=== PATIENT | female | born 1945 | race Caucasian/White ===

== ENCOUNTER → 2018-04-15 11:44 | Outpatient (CLI) | payer MEDICARE, BC, SELFPAY ==
--- NOTE | 2018-04-15 | DI.MG.S_ITS ---
BILATERAL DIGITAL SCREENING MAMMOGRAM 3D/2D WITH CAD: 04/15/2018 CLINICAL: Routine screening. Comparison is made to exams dated: 03/15/2017 mammogram - [facility], 05/01/2015 mammogram, and 04/30/2014 mammogram - [facility]. The tissue of both breasts is predominantly fatty. Current study was also evaluated with a Computer Aided Detection (CAD) system. No significant masses, calcifications, or other findings are seen in either breast. There has been no significant interval change. IMPRESSION: NEGATIVE There is no mammographic evidence of malignancy. A 1 year screening mammogram is recommended. This exam was interpreted at Station ID: [id number]. NOTE: For mammograms, a report in lay terms will be sent to the patient. Approximately 15% of breast malignancies will not be visualized mammographically. In the management of a palpable breast mass, a negative mammogram must not discourage biopsy of a clinically suspicious lesion. Electronically Signed By: Anthony henao/gabriel:04/15/2018 16:46:37 letter sent: Normal Exam ACR BI-RADS Category 1: Negative 3341F
== END ==
PROVIDERS: Family Provider Internal Medicine; PCP Internal Medicine; Visit Provider Internal Medicine
DX: Z12.31 Encounter for screening mammogram for malignant neoplasm of breast (principal)
CPT/HCPCS: 77063; 77067

== ENCOUNTER → 2019-04-18 09:56 | Outpatient (CLI) | payer MEDICARE, BC, SELFPAY | PROVIDERS: PCP Internal Medicine; Visit Provider Internal Medicine | DX: M81.0 Age-related osteoporosis without current pathological fracture (principal); Z78.0 Asymptomatic menopausal state; E11.9 Type 2 diabetes mellitus without complications | CPT/HCPCS: 77080 ==

== ENCOUNTER → 2019-04-20 15:40 | Outpatient (CLI) | payer MEDICARE, BC, SELFPAY ==
--- NOTE | 2019-04-20 | DI.MG.S_ITS ---
BILATERAL DIGITAL SCREENING MAMMOGRAM 3D/2D WITH CAD: 04/20/2019 CLINICAL: Routine screening. Comparison is made to exams dated: 04/15/2018 mammogram, 03/15/2017 mammogram - [facility], and 05/01/2015 mammogram - [facility]. There are scattered fibroglandular elements in both breasts. Current study was also evaluated with a Computer Aided Detection (CAD) system. No significant masses, calcifications, or other findings are seen in either breast. There has been no significant interval change. IMPRESSION: NEGATIVE There is no mammographic evidence of malignancy. A 1 year screening mammogram is recommended. This exam was interpreted at Station ID: [id number]. NOTE: For mammograms, a report in lay terms will be sent to the patient. Approximately 15% of breast malignancies will not be visualized mammographically. In the management of a palpable breast mass, a negative mammogram must not discourage biopsy of a clinically suspicious lesion. Electronically Signed By: Diony kaye/gabriel:04/20/2019 18:51:55 letter sent: Normal Exam ACR BI-RADS Category 1: Negative 3341F
== END ==
PROVIDERS: PCP Internal Medicine; Visit Provider Internal Medicine
DX: Z12.31 Encounter for screening mammogram for malignant neoplasm of breast (principal)
CPT/HCPCS: 77063; 77067

== ENCOUNTER → 2020-04-22 12:02 | Outpatient (CLI) | payer MEDICARE, BC, SELFPAY ==
--- NOTE | 2020-04-22 12:04 | DI.MG.S_ITS ---
BILATERAL DIGITAL SCREENING MAMMOGRAM 3D/2D WITH CAD: 04/22/2020 CLINICAL: Routine screening. Comparison is made to exams dated: 04/20/2019 mammogram, 04/15/2018 mammogram, and 03/15/2017 mammogram - [facility]. There are scattered fibroglandular elements in both breasts. Current study was also evaluated with a Computer Aided Detection (CAD) system. No significant masses, calcifications, or other findings are seen in either breast. There has been no significant interval change. IMPRESSION: NEGATIVE There is no mammographic evidence of malignancy. A 1 year screening mammogram is recommended. This exam was interpreted at Station ID: [id number]. NOTE: For mammograms, a report in lay terms will be sent to the patient. Approximately 15% of breast malignancies will not be visualized mammographically. In the management of a palpable breast mass, a negative mammogram must not discourage biopsy of a clinically suspicious lesion. Electronically Signed By: Diony Martinez M.D. at/gabriel:04/22/2020 12:43:34 letter sent: Normal Exam ACR BI-RADS Category 1: Negative 3341F
== END ==
PROVIDERS: PCP Internal Medicine; Referring Provider Internal Medicine; Visit Provider Internal Medicine
DX: Z12.31 Encounter for screening mammogram for malignant neoplasm of breast (principal)
CPT/HCPCS: 77063; 77067

== ENCOUNTER → 2021-08-11 10:25 | Outpatient (CLI) | payer MEDICARE, BC, SELFPAY ==
--- NOTE | 2021-08-11 | DI.MG.S_ITS ---
BILATERAL DIGITAL SCREENING MAMMOGRAM 3D/2D WITH CAD: 08/11/2021 CLINICAL: Routine screening. Comparison is made to exams dated: 04/22/2020 mammogram, 04/20/2019 mammogram, and 04/15/2018 mammogram - [facility]. There are scattered fibroglandular elements in both breasts. Current study was also evaluated with a Computer Aided Detection (CAD) system. No significant masses, calcifications, or other findings are seen in either breast. There has been no significant interval change. IMPRESSION: NEGATIVE There is no mammographic evidence of malignancy. A 1 year screening mammogram is recommended. This exam was interpreted at Station ID: [id number]. NOTE: For mammograms, a report in lay terms will be sent to the patient. Approximately 15% of breast malignancies will not be visualized mammographically. In the management of a palpable breast mass, a negative mammogram must not discourage biopsy of a clinically suspicious lesion. Electronically Signed By: Kavitha sr/gabriel:08/11/2021 11:02:21 letter sent: Normal Exam ACR BI-RADS Category 1: Negative 3341F
== END ==
PROVIDERS: PCP Internal Medicine; Referring Provider Internal Medicine; Visit Provider Internal Medicine
DX: Z12.31 Encounter for screening mammogram for malignant neoplasm of breast (principal)
CPT/HCPCS: 77063; 77067

== ENCOUNTER → 2022-02-19 13:43 | Outpatient (CLI) | payer MEDICARE, OTHER, SELFPAY ==
--- NOTE | 2022-02-19 | DI.ECHO.S_ITS ---
[facility]---------+ [facility] +---------+ : : [address] : [place] : : : : [id number] : : : : Phone: [phone]+ Echocardiogram Report + + :Name: DARYL CHU Study Date: 02/19/2022 Height: 63 in : :[facility] ReadingLocation: Weight: 155 lb : : Gender: Female BSA: 1.7 m2 : :: 1945 Age: 76 yrs BP: 148/90 mmHg: :Reason For Study: SHORTNESS OF BREATH : :Ordering Physician: KIMBERLEY, : :MARCO ANTONIO Vela Performed By: Leandra Goss : :Referring: MARCO ANTONIO CHU : + + Interpretation Summary Normal sinus rhythm. Normal LV size and wall thickness; normal wall motion and LV systolic function. EF is 60-65%. Normal chamber sizes. Aortic valve leaflets are moderately thickened and mildly calcified. There is mild associated aortic stenosis. Otherwise no valvular abnormalities. No prior study available for comparison. Procedure: A two-dimensional transthoracic echocardiogram with color flow and Doppler was performed. The study quality was technically adequate. There is no prior echocardiogram noted for this patient. The patient was in sinus rhythm with heart rates between 59-73 bpm during the exam. Left Ventricle: The left ventricle is normal in size and wall thickness. The ejection fraction is estimated to be 60-65%. Right Ventricle: The right ventricle is normal in size and function. Atria: The left atrial size is normal. Right atrial size is normal. There is no Doppler evidence for an interatrial shunt. Mitral Valve: The mitral valve is normal in structure and function. There is mild mitral annular calcification. There is trace mitral regurgitation. Aortic Valve: The aortic valve is mildly calcified. The peak aortic velocity is 2.2 m/sec. The aortic valve mean gradient is 11 mmHg. There is mild aortic regurgitation. Tricuspid Valve: The tricuspid valve is normal in structure and function. There is trace tricuspid regurgitation. Pulmonic Valve: The pulmonic valve is not well seen, but is grossly normal. There is no pulmonic valvular regurgitation. Great Vessels: The aortic root is normal size. The ascending aorta could not be visualized. The IVC is of normal diameter and collapses greater than 50% with a sniff. This suggests a low right atrial pressure of 3 mm Hg. Pericardium/ Pleura There is no pericardial effusion. There is no pleural effusion. MMode/2D Measurements & Calculations LVIDd: 4.4 cm LVOT diam: 2.3 cm LVIDs: 3.0 cm Ao root diam: 3.1 cm FS: 31.2 % Ao Arch Diam (Prox Trans): 2.8 cm IVSd: 0.85 cm LVPWd: 0.88 cm LV de jesus. diameter/BSA (cm/m^2): 2.5 LV sys. diameter/BSA (cm/m^2): 1.7 LA A2 area: 19.9 cm2 RA long axis: 5.0 cm LA A4 area: 16.7 cm2 RA area: 13.9 cm2 LA length (vol): 5.1 cm RA vol: 33.2 ml LA vol: 55.4 ml RA : 19.1 ml/m2 LA vol index: 32.0 ml/m2 IVC diam: 1.8 cm RVD1 (basal): 3.3 cm RVD2 (mid): 3.0 cm TAPSE: 2.0 cm Doppler Measurements & Calculations Ao V2 max: 221.5 cm/sec LVOT Max Jason: 101.2 cm/sec Ao V2 mean: 149.7 cm/sec LV V1 max P.1 mmHg Ao max P.3 mmHg LV V1 VTI: 22.1 cm Ao mean P.0 mmHg ZULEYMA(I,D): 2.0 cm2 Ao V2 VTI: 45.9 cm ZULEYMA(V,D): 1.9 cm2 sev ratio: 0.48 ZULEYMA indexed to BSA (cm^2/m^2): 1.1 MV E max jason: 78.5 cm/sec PA V2 max: 90.6 cm/sec MV A max jason: 125.1 cm/sec PA V2 mean: 63.0 cm/sec MV E/A: 0.63 PA mean P.8 mmHg Med Peak E' Jason: 6.2 cm/sec PA pr(Accel): 24.2 mmHg E/E' med: 12.7 Lat Peak E' Jason: 6.2 cm/sec E/E' lat: 12.6 E/e' average: 12.7 MV dec time: 0.31 sec SV([facility]): 91.5 ml Electronically signed by: Anabel Hernandez M.D. on Reading Physician:02/20/2022 01:49 AM
== END ==
PROVIDERS: PCP Internal Medicine; Referring Provider Family Medicine; Visit Provider Family Medicine
DX: I35.1 Nonrheumatic aortic (valve) insufficiency (principal); R06.02 Shortness of breath
CPT/HCPCS: 93306

== ENCOUNTER → 2022-09-26 10:05 | Outpatient (CLI) | payer MEDICARE, OTHER, SELFPAY ==
--- NOTE | 2022-09-26 10:09 | DI.MG.S_ITS ---
BILATERAL DIGITAL SCREENING MAMMOGRAM 3D/2D WITH CAD: 09/26/2022 CLINICAL: Routine screening. Comparison is made to exams dated: 08/11/2021 mammogram, 04/22/2020 mammogram, and 04/20/2019 mammogram - [facility]. There are scattered areas of fibroglandular density in both breasts (category b / 25%-50% glandular tissue). Current study was also evaluated with a Computer Aided Detection (CAD) system. No significant masses, calcifications, or other findings are seen in either breast. There has been no significant interval change. IMPRESSION: NEGATIVE There is no mammographic evidence of malignancy. A 1 year screening mammogram is recommended. Based on the Tyrer Cuzick model (a risk assessment model) the patient's lifetime risk is 3.5% and her 10 year risk is 0.0%. According to the ACR, ACS, and NCCN guidelines, an annual breast MRI exam along with mammogram is recommended if the patient's lifetime risk is 20% or greater. This exam was interpreted at Station ID: [id number]. NOTE: For mammograms, a report in lay terms will be sent to the patient. Approximately 15% of breast malignancies will not be visualized mammographically. In the management of a palpable breast mass, a negative mammogram must not discourage biopsy of a clinically suspicious lesion. Electronically Signed By: Diony kaye/gabriel:09/28/2022 07:58:56 letter sent: Normal Exam ACR BI-RADS Category 1: Negative 3341F
== END ==
PROVIDERS: PCP Internal Medicine; Referring Provider Internal Medicine; Visit Provider Internal Medicine
DX: Z12.31 Encounter for screening mammogram for malignant neoplasm of breast (principal)
CPT/HCPCS: 77063; 77067

== ENCOUNTER → 2022-12-09 14:14 | Outpatient (CLI) | payer MEDICARE, OTHER, SELFPAY ==
--- NOTE | 2022-12-09 | DI.RAD.S_ITS ---
Bone Density Report Name: DARYL CHU Age: 77 Sex: Female Ethnicity: White Date of : 1945 Indication: postmenopausal; screening for osteoporosis; Referring Provider: GARRETT MOMIN M.D. Study: Bone densitometry was performed. Exam Date: December 09, 2022 Accession number: [id number] Bone Density: Region BMD T-score Z-score Classification AP Spine(L1, L2) 1.017 0.3 2.7 Normal Femoral Neck (Left) 0.522 -2.9 -0.8 Osteoporosis Total Hip (Left) 0.700 -2.0 -0.1 Osteopenia Femoral Neck (Right) 0.546 -2.7 -0.6 Osteoporosis Total Hip (Right) 0.762 -1.5 0.4 Osteopenia Total Hip Mean 0.731 -1.8 0.2 Osteopenia World Health Organization criteria for BMD impression classify patients as: Normal (T-score at or above -1.0), Osteopenia (T-score between -1.0 and -2.5), or Osteoporosis (T-score at or below -2.5). 10-year Fracture Risk: FRAX not reported because: Some T-score for Spine Total or Hip Total or Femoral Neck at or below -2.5 Impression: The patient has osteoporosis, based on the Left Femoral Neck T-score. Discussion: INCREASED RISK OF FRACTURE. BONE DENSITY IS UNDESIRABLY LOW AT ONE OR MORE SKELETAL SITES, CONSISTENT WITH POSTMENOPAUSAL OSTEOPOROSIS. This patient's lowest T-score meets the World Health Organization's (WHO) criteria for osteoporosis at one or more sites (T-score -2.5 or below). In untreated patients, the risk of osteoporotic fracture increases approximately two-fold for each 1.0 SD decrease in T-score. Low bone density is not the only risk factor for fracture; also consider factors such as patient's age, frailty or poor health, risk of falling, risk of injury, previous osteoporotic fracture, family history of osteoporosis, cigarette smoking, low body weight, etc. Not everyone with low bone mineral density has osteoporosis; osteomalacia and other metabolic bone disorders should also be considered. Patients who have osteoporosis should be evaluated for specific diseases and conditions (secondary causes) that may cause or contribute to bone loss. The [place] [employer]ocrinologists (AACE) and National Osteoporosis Foundation (NOF) recommend pharmacologic intervention for all postmenopausal women whose T-score is in this range. The patient should follow a healthful lifestyle (good nutrition with adequate calcium and vitamin D, and appropriate weight-bearing exercise). Follow-Up: Consider a repeat BMD and Vertebral Fracture Assessment (VFA) exam in 2 years or sooner if medically necessary, to reassess this patient's status. Reported by: HUI CORNELIUS M.D on 12/09/2022 2:43:00 PM.
== END ==
PROVIDERS: PCP Internal Medicine; Referring Provider Internal Medicine; Visit Provider Internal Medicine
DX: M81.0 Age-related osteoporosis without current pathological fracture (principal); Z13.820 Encounter for screening for osteoporosis; Z78.0 Asymptomatic menopausal state
CPT/HCPCS: 77080

== ENCOUNTER → 2023-04-21 14:39 | Outpatient (CLI) | payer MEDICARE, OTHER, SELFPAY ==
--- NOTE | 2023-04-21 | DI.US.S_ITS ---
PROCEDURE: US EXTREMITY NONVASC LOWER RT INDICATIONS: LUMP ON THIGH TECHNIQUE: Real-time scanning was performed of the right hip/upper thigh, with image documentation. COMPARISON: None. FINDINGS: Ultrasound examination of lateral right hip/upper thigh at patient's reported area of palpable lump shows a fairly well-circumscribed solid appearing structure within subcutaneous soft tissue measures 3.1 x 2.7 x 1.7 cm in size and is isoechoic to adjacent subcutaneous fat. No internal vascularity is seen. Similar smaller structure within subcutaneous fat measures 1.1 x 1 x 0.6 cm in size is also noted. IMPRESSION: Finding may represent 2 lipomas in lateral right hip soft tissue at the level of greater trochanter. Clinical and sonographic follow-up is recommended. Dictated by: Vasu Lara M.D. on 04/21/2023 at 22:37 Approved by: Vasu Lara M.D. on 04/21/2023 at 22:39
== END ==
PROVIDERS: PCP Internal Medicine; Referring Provider Internal Medicine; Visit Provider Internal Medicine
DX: D17.9 Benign lipomatous neoplasm, unspecified (principal)
CPT/HCPCS: 76882

== ENCOUNTER → 2023-10-07 11:29 | Outpatient (CLI) | payer MEDICARE, OTHER, SELFPAY ==
--- NOTE | 2023-10-07 | DI.MRI.S_ITS ---
PROCEDURE: MR KNEE LT WO CON INDICATIONS: Pain in left knee TECHNIQUE: Noncontrast sagittal PD fast spin echo and T2 fast spin echo with fat saturation, sagittal 3-D FLASH with fat saturation; coronal T1 spin echo and PD fast spin echo with fat saturation, and axial PD fast spin echo with fat saturation through the knee. COMPARISON: None. FINDINGS: Image quality: Excellent. Menisci: There is medial and lateral meniscal extrusion. There is horizontal tear of the body of the medial meniscus. A radial tear is seen in the posterior horn of the lateral meniscus superimposed on intrasubstance degeneration. Horizontal tear is also seen in the anterior horn body of the lateral meniscus. The meniscal root ligaments appear intact. Cruciate ligaments: The anterior and posterior cruciate ligaments appear intact. Medial structures: The medial collateral ligament appears intact. The semimembranosus tendon insertions and meniscocapsular junction appear intact. Visualized portions of the pes anserinus tendons appear normal. No abnormal bursal fluid. Lateral structures: The lateral collateral ligament, long and short heads of the biceps femoris tendon appear intact. The popliteus tendon appears normal. Iliotibial band appears normal. Anterior structures: The quadriceps and patellar tendons appear intact. Mild quadriceps tendinitis and patellar tendinitis. Patellar alignment is normal. No femoral trochlear dysplasia or ventral trochlear prominence. No edema in the infrapatellar fat pad. There is moderate amount of fluid in the prepatellar bursa consistent with bursitis. Bones and cartilage: No displaced fractures. There is bone marrow edema in the anterior aspect of the tibial plateau, consistent with bone contusions. Moderate tricompartmental cartilage thinning and fibrillation. Joint space: There is small knee joint effusion. There is a tiny Bass's cyst. Normal appearing synovial plicae are incidentally noted. Question a 1.6 x 1.2 x 1.2 cm intra-articular body in the posterior knee joint (series 6 image 15; series 9 image 24). IMPRESSION: 1. Medial meniscus tear with a horizontal tear involving the body and a radial tear involving the posterior horn. 2. Large horizontal tear of the lateral meniscus involving the anterior horn and body. 3. Bone contusions in the anterior aspect of the tibial plateau. No displaced fractures. 4. Prepatellar bursitis. 5. Moderate osteoarthritis with tricompartmental cartilage cartilage thinning and degeneration. 6. Question a 1.6 x 1.2 x 1.2 cm intra-articular body in the posterior knee joint. Dictated by: Abisai Byrnes M.D. on 10/07/2023 at 12:37 Approved by: Abisai Byrnes M.D. on 10/07/2023 at 13:37
--- NOTE | 2023-10-07 | DI.MG.S_ITS ---
BILATERAL DIGITAL SCREENING MAMMOGRAM 3D/2D WITH CAD: 10/07/2023 CLINICAL: Routine screening. Comparison is made to exams dated: 09/26/2022 mammogram, 08/11/2021 mammogram, and 04/22/2020 mammogram - [facility]. There are scattered areas of fibroglandular density in both breasts (category b / 25%-50% glandular tissue). Current study was also evaluated with a Computer Aided Detection (CAD) system. No significant masses, calcifications, or other findings are seen in either breast. There has been no significant interval change. IMPRESSION: NEGATIVE There is no mammographic evidence of malignancy. A 1 year screening mammogram is recommended. Based on the Tyrer Cuzick model (a risk assessment model) the patient's lifetime risk is 3.2% and her 10 year risk is 0.0%. According to the ACR, ACS, and NCCN guidelines, an annual breast MRI exam along with mammogram is recommended if the patient's lifetime risk is 20% or greater. This exam was interpreted at Station ID: [id number]. NOTE: For mammograms, a report in lay terms will be sent to the patient. Approximately 15% of breast malignancies will not be visualized mammographically. In the management of a palpable breast mass, a negative mammogram must not discourage biopsy of a clinically suspicious lesion. Electronically Signed By: Marco larkin/gabriel:10/07/2023 14:44:37 letter sent: Normal Exam ACR BI-RADS Category 1: Negative 3341F
== END ==
LOC: MRI 11:31
PROVIDERS: PCP Internal Medicine; Referring Provider Internal Medicine; Visit Provider Internal Medicine
DX: Z12.31 Encounter for screening mammogram for malignant neoplasm of breast (principal); R92.323 Mammographic fibroglandular density, bilateral breasts; S83.242A Other tear of medial meniscus, current injury, left knee, initial encounter; S83.282A Other tear of lateral meniscus, current injury, left knee, initial encounter; S80.02XA Contusion of left knee, initial encounter; M70.52 Other bursitis of knee, left knee; M17.12 Unilateral primary osteoarthritis, left knee; M25.562 Pain in left knee
CPT/HCPCS: 73721; 77063; 77067

== ENCOUNTER → 2023-10-29 10:16 | Outpatient (CLI) | payer MEDICARE, OTHER, SELFPAY ==
--- NOTE | 2023-10-29 10:20 | DI.RAD.S_ITS ---
PROCEDURE: XR HIP W PEL IF DONE LT 2V INDICATIONS: HIP PAIN TECHNIQUE: 2 views of the hip were acquired. COMPARISON: [facility], , HIP 2V LEFT, 03/27/2015, 14:52. FINDINGS: Bones: No fractures or dislocations. No suspicious bony lesions. The visualized pelvic ring appears intact. Moderate joint space narrowing. No marginal osteophytes. Calcified uterine fibroids. Degenerative changes noted lower lumbar spine. Soft tissues: No suspicious soft tissue calcifications or masses. IMPRESSION: Moderate left hip osteoarthritis. Degenerative disc disease and arthropathy in the lower lumbar spine. Approved by: Tio Rudolph M.D. on 10/29/2023 at 18:30
== END ==
PROVIDERS: PCP Internal Medicine; Referring Provider Internal Medicine; Visit Provider Internal Medicine
DX: M13.852 Other specified arthritis, left hip (principal); M51.36 Other intervertebral disc degeneration, lumbar region; M47.816 Spondylosis without myelopathy or radiculopathy, lumbar region
CPT/HCPCS: 73502

== ENCOUNTER → 2025-03-06 14:37 | Outpatient (CLI) | payer MEDICARE, OTHER, SELFPAY ==
--- NOTE | 2025-03-06 14:39 | DI.MG.S_ITS ---
MM screening mammo BI: 03/06/2025. BI-RADS: 1 CLINICAL: 79-year old female for bilateral screening mammogram. Tyrer-Cuzick lifetime risk of 1.9%. No personal or first-degree family history of breast cancer. PRIOR EXAMS 10/07/2023, 09/26/2022, 08/11/2021, 04/22/2020. MAMMOGRAPHY TECHNIQUE: 2D and 3D (tomosynthesis) digital mammographic views obtained, with additional images as needed for full coverage. Current study was also evaluated with a Computer Aided Detection (CAD) system. DENSITY B. There are scattered areas of fibroglandular density. MAMMOGRAPHY FINDINGS Bilateral: No suspicious mass, asymmetry, microcalcification, or other abnormality seen. IMPRESSION: * No evidence of malignancy. RECOMMENDATIONS Bilateral * Annual screening mammography. OVERALL ASSESSMENT CATEGORY BI-RADS-1: Negative. The [employer] recommends annual screening mammography beginning at age 40 for women with average risk of breast cancer. ELECTRONICALLY SIGNED: Diony Martinez M.D. on 03/07/2025 at 08:07:31 AM PT Interpreting Station ID: [id number]
== END ==
LOC: MAMMO 14:39
PROVIDERS: PCP Internal Medicine; Referring Provider Internal Medicine; Visit Provider Internal Medicine
DX: Z12.31 Encounter for screening mammogram for malignant neoplasm of breast (principal)
CPT/HCPCS: 77063; 77067

== ENCOUNTER → 2025-03-22 14:49 | Outpatient (CLI) | payer MEDICARE, OTHER, SELFPAY ==
--- NOTE | 2025-03-22 14:51 | DI.ECHO.S_ITS ---
[facility] : : [address] : : [place] : : [id number] : : Phone: [phone] Echocardiogram Report + + :Name: DARYL CHU Study Date: 03/22/2025 Height: 62 in : :[facility] ReadingLocation: Weight: 150 lb : : Gender: Female BSA: 1.7 m2 : :: 1945 Age: 79 yrs BP: 164/99 mmHg: :Reason For Study: Aortic valve stenosis : :Ordering Physician: MERRILL, : :GARRETT Performed By: Kaylie Dallas : :Referring: GARRETT MOMIN : + + Interpretation Summary The ejection fraction is estimated to be 50-55%. Grade I diastolic dysfunction with normal left atrial pressure. The left atrium is mildly dilated. The right ventricle is normal in size and function. There is mild to moderate aortic stenosis. There is mild aortic regurgitation. Pulmonary artery pressures cannot be estimated because of the lack of a measurable TR jet velocity but the IVC suggests a CVP of around 3 mmHg. Compared to the prior study 12/10/2021, the left ventricular systolic function has decreased and the aortic stenosis has likely progressed however this is note of a decreased stroke-volume index. Procedure: A two-dimensional transthoracic echocardiogram with color flow and Doppler was performed. The study quality was technically adequate. Comparison is made with the echocardiogram of 02-19-22. The heart rate ranged between 90-97 bpm during the study. Left Ventricle: The left ventricle is normal in size and wall thickness. The ejection fraction is estimated to be 50-55%. Grade I diastolic dysfunction with normal left atrial pressure. Right Ventricle: The right ventricle is normal in size and function. Atria: The left atrium is mildly dilated. Right atrial size is normal. The interatrial septum grossly appears intact with no obvious evidence for an atrial septal defect. The atrial septum is aneurysmal. Mitral Valve: The mitral valve leaflets appear mildly thickened. There is mild to moderate mitral annular calcification. There is trace mitral regurgitation. Aortic Valve: The aortic valve is moderately calcified. The peak aortic velocity is 2.3 m/sec. The aortic valve mean gradient is 13 mmHg. The peak aortic velocity on the previous exam was 2.2 m/sec. The stroke volume index is 30 mL/m2. The dimensionless index is 0.48. There is mild to moderate aortic stenosis. There is mild aortic regurgitation. Tricuspid Valve: The tricuspid valve leaflets are thin and pliable. There is trace tricuspid regurgitation. Pulmonary artery pressures cannot be estimated because of the lack of a measurable TR jet velocity but the IVC suggests a CVP of around 3 mmHg. Pulmonic Valve: The pulmonic valve leaflets appear thickened, but open well. There is a trace or physiologic amount of pulmonic regurgitation. Great Vessels: The aortic root is normal size. The ascending aorta is normal in size. The aortic arch is normal in size. The IVC is of normal diameter and collapses greater than 50% with a sniff. This suggests a low right atrial pressure of 3 mm Hg. Pericardium/ Pleura There is no pericardial effusion. There is no pleural effusion. MMode/2D Measurements & Calculations LVIDd: 4.4 cm LVOT diam: 1.9 cm LVIDs: 2.5 cm Ao root diam: 3.2 cm FS: 43.2 % asc Aorta Diam: 3.0 cm EPSS: 1.3 cm Ao Arch Diam (Prox Trans): 2.8 cm IVSd: 0.81 cm LVPWd: 0.55 cm LV de jesus. diameter/BSA (cm/m^2): 2.6 LV sys. diameter/BSA (cm/m^2): 1.5 LA A2 area: 20.2 cm2 RA long axis: 5.5 cm LA A4 area: 17.4 cm2 RA area: 13.5 cm2 LA length (vol): 4.5 cm RA vol: 28.1 ml LA vol: 66.8 ml RA : 16.6 ml/m2 LA vol index: 39.5 ml/m2 IVC diam: 1.2 cm TAPSE: 1.7 cm Doppler Measurements & Calculations Ao V2 max: 230.7 cm/sec LVOT Max Jason: 95.4 cm/sec Ao V2 mean: 162.2 cm/sec LV V1 max P.6 mmHg Ao max P.3 mmHg LV V1 VTI: 18.4 cm Ao mean P.7 mmHg ZULEYMA(I,D): 1.1 cm2 Ao V2 VTI: 46.8 cm ZULEYMA(V,D): 1.1 cm2 sev ratio: 0.39 ZULEYMA indexed to BSA (cm^2/m^2): 0.64 AI P1/2t: 403.0 msec AI dec slope: 340.6 cm/sec2 MV E max jason: 49.1 cm/sec TR max jason: 203.9 cm/sec MV A max jason: 130.1 cm/sec TR max P.6 mmHg MV E/A: 0.38 PA V2 max: 71.6 cm/sec Med Peak E' Jason: 3.6 cm/sec PA V2 mean: 53.4 cm/sec E/E' med: 13.7 PA mean P.2 mmHg Lat Peak E' Jason: 2.0 cm/sec PA pr(Accel): 5.4 mmHg E/E' lat: 24.3 E/e' average: 19.0 MV dec time: 0.17 sec SV(LVOT): 50.5 ml Reading Physician:07:37 PM
--- NOTE | 2025-03-22 14:51 | DI.CT.S_ITS ---
PROCEDURE: CT HEAD/BRAIN WO CON INDICATIONS: FALL TECHNIQUE: Noncontrast 4.5 mm thick angled axial sections acquired from the foramen magnum to the vertex, with coronal and sagittal reformats. For radiation dose reduction, the following was used: automated exposure control, adjustment of mA and/or kV according to patient size. COMPARISON: None. FINDINGS: Image quality: Diagnostic. CSF spaces: Basal cisterns are patent. No extra-axial fluid collections. The ventricles are symmetric in size and shape. Brain: No intracranial bleeds or mass effect. There is cerebral volume loss, with resultant ventricular and sulcal prominence. There are periventricular and deep white matter chronic small vessel ischemic changes. There is intracranial internal carotid artery atherosclerosis. Skull and face: Calvarium and visualized facial bones appear intact, without suspicious lesions. Sinuses: Visualized sinuses and mastoids are clear. IMPRESSION: No acute intracranial pathology. Dictated by: Armando Torres M.D. on 03/23/2025 at 11:35 Approved by: Armando Torres M.D. on 03/23/2025 at 11:36
== END ==
LOC: CT 14:50
PROVIDERS: PCP Internal Medicine; Referring Provider Internal Medicine; Visit Provider Internal Medicine
DX: Z01.818 Encounter for other preprocedural examination (principal); I65.29 Occlusion and stenosis of unspecified carotid artery; R51.0 Headache with orthostatic component, not elsewhere classified; R42 Dizziness and giddiness; I34.81 Nonrheumatic mitral (valve) annulus calcification; I35.2 Nonrheumatic aortic (valve) stenosis with insufficiency; R07.9 Chest pain, unspecified
CPT/HCPCS: 70450; 93306